=== PATIENT | female | born 1990 | race Asian ===

== ENCOUNTER 2022-03-21 04:07 | Day surgery (SDC) | payer BC ==
[2022-03-16 15:47] VITALS: BMI 20.1
[2022-03-21] MEDS ORDERED: MIDAZOLAM HCL 2 MG/2 ML SINGLE DOSE VIAL ONE (08:44)
[2022-03-21] MEDS ORDERED: PROPOFOL 20 ML ONE ×3 (09:07→10:48)
[2022-03-21] MEDS ORDERED: ROCURONIUM BROMIDE 50 MG/5 ML SYRINGE ONE ×2 (09:08→09:49)
[2022-03-21] MEDS ORDERED: SUCCINYLCHOLINE CHLORIDE 200 MG/10 ML SYRINGE ONE (09:08)
[2022-03-21] MEDS ORDERED: ceFAZolin SODIUM 1 GM VIAL IVPB ONE (09:20)
[2022-03-21] MEDS ORDERED: BUPIVACAINE HCL/PF 0.5% (5MG/ML) 10 ML VIAL IJ ONE ×2 (09:47)
[2022-03-21] MEDS ORDERED: NEOSTIGMINE METHYLSULFATE 0.5 MG/ML - 10 ML MDV ONE (09:58)
[2022-03-21] MEDS ORDERED: SEVOFLURANE 250 ML BTL ONE (10:10)
[2022-03-21] MEDS ORDERED: ONDANSETRON 4 MG/2 ML VIAL IVPUSH PRN ×2 (10:17→11:10)
[2022-03-21] MEDS ORDERED: oxyCODONE HCL 5 MG TABLET PO PRN ×3 (10:17→11:10)
[2022-03-21] MEDS ORDERED: LACTATED RINGERS SOLUTION 1,000 ML IV SCH (10:30)
[2022-03-21] MEDS ORDERED: IBUPROFEN 800 MG/8 ML IJ IVPB PRN (11:10)
[2022-03-21] MEDS ORDERED: IBUPROFEN 600 MG TABLET (FP) PO PRN (11:10)
[2022-03-21] MEDS ORDERED: ELECTROLYTE-148 SOLN 1,000 ML IV SCH (11:15)
[2022-03-21] MEDS ORDERED: DEXAMETHASONE SOD PHOSPHATE 4 MG/1 ML VIAL ONE (11:55)
[2022-03-21] MEDS ORDERED: GLYCOPYRROLATE 0.2 MG/1 ML VIAL ONE (11:55)
[2022-03-21] MEDS ORDERED: LIDOCAINE HCL/PF 2% SDV 5ML VIAL ONE (11:55)
[2022-03-21] MEDS ORDERED: ceFAZolin SODIUM 1 GM VIAL ONE (11:55)
[2022-03-21] MEDS ORDERED: IBUPROFEN 800 MG/8 ML IJ IVPB ONE ×2 (12:02→12:10)
[2022-03-21] MEDS ORDERED: PROMETHAZINE HCL 25 MG/1 ML VIAL IVPUSH PRN (13:34)
[2022-03-21 14:39] VITALS: RESP 20
[2022-03-21] MEDS ORDERED: ACETAMINOPHEN 1000 MG/100 ML BAG IVPB ONE (15:11)
[2022-03-21 17:11] VITALS: BP 108/66; PULSE 72; TEMP 98
== END 2022-03-21 17:00 | disposition home or self-care (01) ==
LOC: JASU-SURG 04:07
PROVIDERS: ATTEND Obstetrics & Gynecology
PROC: 0UB14ZZ Excision of Left Ovary, Percutaneous Endoscopic Approach (ICD-10-PCS; principal; 2022-03-21 09:00)
DX: N83.202 Unspecified ovarian cyst, left side (principal); N80.1 Endometriosis of ovary; N73.6 Female pelvic peritoneal adhesions (postinfective)
CPT/HCPCS: 81025; 86850; 86900; 86901; 88305-TC; 94760